=== PATIENT | female | born 1965 ===

== ENCOUNTER 2016-10-14 16:27 | Inpatient (IN) | payer MEDICAID ==
[2016-10-14 17:20] LABS: BASO # 0.1 K/uL (0.0-0.2); BASO % 0.8 % (0.0-2.0); EOS # 0.1 K/uL (0.0-0.7); EOS % 1.5 % (0.0-4.0); HEMOGLOBIN 14.1 g/dL (11.0-16.0); LYMPH # 2.7 K/uL (1.0-4.3); LYMPH % 27.2 % (20.0-40.0); MEAN CELL VOLUME 85.1 fL (81.0-99.0); MEAN CORPUSCULAR HEMOGLOBIN 28.9 pg (27.0-31.0); MEAN PLATELET VOLUME 8.1 fL (7.2-11.7); MONO # 0.7 K/uL (0.0-0.8); MONO % 6.6 % (0.0-10.0); NEUT # 6.4 K/uL (1.8-7.0); NEUT % 63.9 % (50.0-75.0); RBC 4.89 Mil/uL (3.80-5.20); RED CELL DISTRIBUTION WIDTH 12.5 % (11.5-14.5)
[2016-10-14 17:28] LABS: ALBUMIN 4.1 g/dL (3.5-5.0)
[2016-10-14 17:31] LABS: ALB/GLOB RATIO 1.2 (1.0-2.1); AST/SGOT 23 U/L (14-36); GFR AFRICAN-AMERICAN 57; GFR NON-AFRICAN AMERICAN 47
[2016-10-14 17:32] LABS: ALT/SGPT 30 U/L (9-52); BLOOD UREA NITROGEN 30 mg/dL (7-17); CALCIUM 9.6 mg/dl (8.6-10.4)
[2016-10-14 17:39] LABS: BARBITURATES, UR NEGATIVE (NEGATIVE); SQUAMOUS EPITHIAL 2 /hpf (0-5); URINE BACTERIA OCC (<OCC); URINE BILIRUBIN NEGATIVE (NEGATIVE); URINE BLOOD NEGATIVE (NEGATIVE); URINE CLARITY Clear (Clear); URINE COLOR Yellow (YELLOW); URINE GLUCOSE (UA) NORMAL (Normal); URINE NITRATE NEGATIVE (NEGATIVE); URINE PROTEIN 1+ mg/dL (NEGATIVE); URINE UROBILINOGEN NORMAL mg/dL (0.2-1.0)
[2016-10-14 17:40] LABS: BENZODIAZEPINES, UR NEGATIVE (NEGATIVE); HCG,QUALITATIVE URINE NEGATIVE (NEGATIVE); URINE LEUKOCYTE ESTERASE 1+ Leu/uL (Negative)
[2016-10-14 17:43] LABS: OPIATES, UR NEGATIVE (NEGATIVE); PHENCYCLIDINE, UR NEGATIVE (NEGATIVE)
--- NOTE | 2016-10-14 17:52 | C.PDOC ---
History Of Present Illness 51 y/o female presents to the ED for evaluation of depression and suicidal ideationS. Patient is unwilling to give any details of suicidal plan currently. She denies physical complaints at this time. Time Seen by Provider: 10/14/16 16:44 Chief Complaint (Nursing): Psychiatric Evaluation History Per: Patient History/Exam Limitations: no limitations Current Symptoms Are (Timing): Still Present Suicide/Self Injury Attempted (Context): None Severity: Mild Associated Symptoms: Depression, Suicidal Thoughts Involuntary Hold By: None Additional History Per: Patient Past Medical History Reviewed: Historical Data, Nursing Documentation, Vital Signs Vital Signs: Last Vital Signs Temp 98.1 F 10/19/16 08:05 Pulse 70 10/19/16 08:05 Resp 19 10/19/16 08:05 BP 126/84 10/19/16 08:05 Pulse Ox 97 10/14/16 19:32 - Medical History PMH: Anemia, Depression, HTN, Schizophrenia - [facility] Procedures INDIVIDUAL PSYCHOTHERAPY, SUPPORTIVE (10/14/16) TRANSFUSE NONAUT RED BLOOD CELLS IN PERIPH VEIN, PERC (07/06/15) Family History: States: No Known Family Hx - Social History Hx Alcohol Use: No Hx Substance Use: No - Immunization History Hx Tetanus Toxoid Vaccination: No Hx Influenza Vaccination: No Hx Pneumococcal Vaccination: No Review Of Systems Except As Marked, All Systems Reviewed And Found Negative. Constitutional: Negative for: Fever, Chills Cardiovascular: Negative for: Chest Pain, Palpitations Respiratory: Negative for: Cough, Shortness of Breath Neurological: Negative for: Headache, Dizziness Psych: Positive for: Depression, Suicidal ideation Physical Exam - Physical Exam Appears: Well, Non-toxic, No Acute Distress Skin: Normal Color, Warm, Dry Head: Normacephalic Eye(s): bilateral: Normal Inspection Oral Mucosa: Moist Neck: Supple Cardiovascular: Rhythm Regular Respiratory: Normal Breath Sounds, No Rales, No Rhonchi, No Wheezing Extremity: Normal ROM Neurological/Psych: Oriented x3 ED Course And Treatment - Laboratory Results Result Diagrams: 10/14/16 17:16 10/14/16 17:16 O2 Sat by Pulse Oximetry: 98 (on RA) Pulse Ox Interpretation: Normal Progress Note: Blood work, UA, Upreg, UDS ordered and reviewed. 6:05 pm- Patient medically cleared. 6:55pm- Patient accepted for psychiatric admission ( depression) by Dr. Gilliam. Disposition - Disposition Disposition: HOSPITALIZED Disposition Time: 16:57 Condition: STABLE - Clinical Impression Clinical Impression: Depression - Scribe Statement The provider has reviewed the documentation as recorded by the Scribe Suhas Del Real All medical record entries made by the Scribe were at my direction and personally dictated by me. I have reviewed the chart and agree that the record accurately reflects my personal performance of the history, physical exam, medical decision making, and the department course for this patient. I have also personally directed, reviewed, and agree with the discharge instructions and disposition. Decision To Admit - Pt Status Changed To: Hospital Disposition Of: Inpatient - Admit Certification Admit to Inpatient:: After my assessment, the patient will require hospitalization for at least two midnights. This is because of the severity of symptoms shown, intensity of services needed, and/or the medical risk in this patient being treated as an outpatient. - InPatient: Physician Admission Certification: I certify that this patient requires 2 or more midnights of care for the following reason:: see notes - . Bed Request Type: Psychiatry Admitting Physician: Con Gilliam Patient Diagnosis: Depression
--- NOTE | 2016-10-15 09:33 | PCM.PSYCH ---
Initial Psychiatric Evaluation - Initial Psychiatric Evaluation Type of Admission: Voluntary Legal Status: Capacity Chief Complaint (in patient's own words): I was feeling depressed and suicidal History of Present Illness and Precipitating Events: Patient is a 51 years-old female, who lives alone, presented to the ER with her sister because of feeling depressed and having suicidal ideations. Patient reports that she lives alone, and likes to stay in her room by herself. She states that on 10/14/16, her sister tried to take her to her house, during which she felt anxious, depressed, and had thoughts about "wanting to kill myself." She states that she wanted to jump out of a window but would not do it because of the pain. Patient reports of hearing bells, and seeing hallucinations of shadows of a person for years. She states that these hallucinations exacerbated when she was diagnosed with ovarian cancer in September 2015. She reports having history of depression since years ago, but did not seek help until 2012 when her . She was hospitalized for depression and suicidal ideations in 2012. She denies any previous suicide attempts. She denies any homicidal ideations. Patient states that she missed taking her risperiodone for past 2 weeks. She states that she takes Xanax only when feeling anxious, such as when taking buses or going outside in public. Patient states that she started smoking cigarettes last month because "she does not care anymore after being diagnosed with cancer," and smokes 2-3 cigarettes every few days. Patient denies any substance abuse. Past medical history Ovarian cancer, HTN Current Medications: Active Medications Generic Name Dose Route Start Last Admin Trade Name Freq PRN Reason Stop Dose Admin Ascorbic Acid 500 mg 10/15/16 10:00 Vitamin C 500 Mg Tab PO DAILY ANNIKA Benztropine Mesylate 1 mg 10/14/16 19:38 Cogentin PO Q6 PRN eps Haloperidol 5 mg 10/14/16 19:38 Haldol PO Q6 PRN Agitation Hydroxyzine HCl 25 mg 10/14/16 22:00 10/14/16 21:37 Atarax PO 25 mg HS ANNIKA Administration Ibuprofen 600 mg 10/14/16 19:38 Motrin Tab PO Q6 PRN Pain, moderate (4-7) Lorazepam 1 mg 10/14/16 19:38 Ativan PO Q6 PRN Anxiety Metoprolol Succinate 50 mg 10/15/16 10:00 Toprol Xl PO DAILY ANNIKA Pantoprazole Sodium 40 mg 10/15/16 10:00 Protonix Ec Tab PO DAILY ANNIKA Risperidone 0.25 mg 10/15/16 22:00 Risperdal Tab PO HS ANNIKA Trazodone HCl 50 mg 10/14/16 19:38 Desyrel PO HS PRN Insomnia Past Psychiatric History - Past Psychiatric History Previous Treatment History: None Pertinent Medical Hx (Current Medical&Sleep Prob, Allergies): Allergies Allergy/AdvReac Type Severity Reaction Status Date / Time No Known Allergies Allergy Verified 10/14/16 16:41 Ascorbic Acid [Vitamin C] 500 mg PO DAILY 10/14/16 Hydroxyzine Pamoate 25 mg PO DAILY 10/14/16 Metoprolol Succinate [Toprol XL] 50 mg PO DAILY 10/14/16 Omeprazole 40 mg PO DAILY 10/14/16 risperiDONE [RisperDAL] 0.25 mg PO DAILY 10/14/16 Review of Systems - Review of Systems All systems: reviewed and no additional remarkable complaints except - Psychiatric Psychiatric: Anxiety, Auditory Hallucinations, Depression, Irritability, Paranoia, Suicidal Ideation, Visual Hallucinations Mental Status Examination - Personal Presentation Personal Presentation: Looks stated age - Affect Affect: Broad - Motor Activity Motor Activity: Psychomotor Agitation - Reliability in Providing Information Reliability in Providing Information: Poor, due to alteration in thoughts, Poor , due to altered mood - Speech Speech: Disorganized, Other - Mood Mood: Anxious - Formal Thought Process Formal Thought Process: Hallucinations, Delusions, Paranoia, Loosening of associations, Flight of ideas, Circumstantial - Hallucinations/Delusions Hallucinations: Visual, Auditory Delusions: Persecution - Obsessions/Compulsions Obsessions: No Compulsions: No - Cognitive Functions Orientation: Person, Place, Situation, Time Sensorium: Alert Attention/Concentration: Attentive Abstract Thinking: [place] Estimate of Intelligence: Below average Judgement: Imparied, as evidence by: Poor judgement, Imparied, as evidence by: Lack of insight into illness - Risk Risk: Diminished functioning - Strength & Assets Inventory Strength & Assets Inventory: Family support, Cooperative - Limitations Limitations: Living alone DSM 5 DX - DSM 5 DSM 5 Diagnosis: Bipolar disorder mixed severe with psychotic features R/O Schizoaffective disorder bipolar type - Recommended/Plan of Treatment Treatment Recommendations and Plan of Treatment: Bipolar disorder mixed severe with psychotic features R/O Schizoaffective disorder bipolar type CBT Psychoeducation Supportive therapy, group therapy, individual therapy Risperdal 0.5 mg by mouth QHS Sertraline 50 mg PO Daily Trazodone 50 mg by mouth daily at bedtime HTN Monitor s/s h/o Ovarian cancer Monitor s/s - Smoking Cessation Smoking Cessation Initiated: No
[2016-10-15] MEDS: Pantoprazole 40 mg EC Tab PO SCH (10:56)
[2016-10-15] MEDS: Metoprolol Succinate 50 mg XL Tab PO SCH (10:56)
[2016-10-16] MEDS: Pantoprazole 40 mg EC Tab PO SCH (09:43)
[2016-10-16] MEDS: Metoprolol Succinate 50 mg XL Tab PO SCH (09:44)
--- NOTE | 2016-10-16 10:30 | PCM.PYCHPN ---
Psychiatric Progress Note - Psychiatric Progress Note Patient seen today, length of contact: 17 min Patient Chief Complaint: I am feeling little better Problems Identified/Issues Discussed: Patient seen and evaluated, chart reviewed and discussed with the nurse. Patient appeared more organized and less internally preoccupied, than yesterday. Patient remained isolated, confined and withdrawn. She still reports depressed mood and feelings of hopelessness and helplessness. She is taking medication and denies any side effects. Supportive therapy and psychoeducation were given. Medication Change: No Medical Record Reviewed: Yes Mental Status Examination - Cognitive Function Orientation: Person, Place, Situation, Time Memory: Intact Attention: Poor Concentration: WNL Association: Loose Fund of Knowledge: WNL - Mood Mood: Anxious - Affect Affect: Broad - Speech Speech: Appropriate - Formal Thought Process Formal Thought Process: Hallucinations, Delusions, Paranoia, Loosening of associations - Suicidal Ideation Suicidal Ideation: No - Homicidal Ideation Homicidal Ideation: No Goal/Treatment Plan - Goal/Treatment Plan Need for Continued Stay: Remain at risks for inpatient hospitalization, Discharge may exacerbated symptoms Progress Toward Problem(s) and Goals/Treatment Plan: Bipolar disorder mixed severe with psychotic features R/O Schizoaffective disorder bipolar type CBT Psychoeducation Supportive therapy, group therapy, individual therapy Risperdal 0.5 mg by mouth QHS Sertraline 50 mg PO Daily Trazodone 50 mg by mouth daily at bedtime HTN Monitor s/s h/o Ovarian cancer Monitor s/s Estimated Date of D/C: 10/20/16
[2016-10-16] MEDS ORDERED: Aluminum Hydroxide/Magnesium Hydroxide Susp (30 mL) PO PRN (20:10)
[2016-10-17 07:32] VITALS: RESP 19
[2016-10-17] MEDS: Pantoprazole 40 mg EC Tab PO SCH (09:29)
[2016-10-17] MEDS: Metoprolol Succinate 50 mg XL Tab PO SCH (09:31)
--- NOTE | 2016-10-17 14:20 | PCM.PYCHPN ---
Psychiatric Progress Note - Psychiatric Progress Note Patient seen today, length of contact: 16 mins Patient Chief Complaint: 'I am feeling depressed' Problems Identified/Issues Discussed: Patient is seen, evaluated, and case discussed with staff. Patient states that she is feeling depressed and irritable. She remained isolated and withdrawn. She reports improvement in her racing thoughts and reports improvement in her auditory and visual hallucinations. She states that her bones were hurting and she is agitated because she did not get much sleep. Her BP was high at 155/107 and was given clonidine. Patient is complaint with all medications, and reports no side effects. Support and psychoeducation given. Medication Change: Yes (increase risperdal, increase trazodone) Medical Record Reviewed: Yes Mental Status Examination - Cognitive Function Orientation: Person, Place, Situation, Time Memory: Intact Attention: WNL Concentration: Poor Association: Loose Fund of Knowledge: Poor - Mood Mood: Anxious - Affect Affect: Broad - Speech Speech: Appropriate - Formal Thought Process Formal Thought Process: Paranoia - Suicidal Ideation Suicidal Ideation: No - Homicidal Ideation Homicidal Ideation: No Goal/Treatment Plan - Goal/Treatment Plan Need for Continued Stay: Remain at risks for inpatient hospitalization, Discharge may exacerbated symptoms Progress Toward Problem(s) and Goals/Treatment Plan: Bipolar disorder mixed severe with psychotic features R/O Schizoaffective disorder bipolar type CBT Psychoeducation Supportive therapy, group therapy, individual therapy Risperdal 1 mg by mouth QHS Sertraline 50 mg PO Daily Trazodone 100 mg by mouth daily at bedtime HTN Monitor s/s h/o Ovarian cancer Monitor s/s Estimated Date of D/C: 10/20/16 - Smoking Cessation Smoking Cessation Initiated: No
[2016-10-18] MEDS: Pantoprazole 40 mg EC Tab PO SCH ×2 (07:49→09:57)
--- NOTE | 2016-10-18 09:46 | PCM.PYCHPN ---
Psychiatric Progress Note - Psychiatric Progress Note Patient seen today, length of contact: 16 mins Patient Chief Complaint: 'I am feeling much better Problems Identified/Issues Discussed: Patient is seen, evaluated, and case discussed with staff. Patient states that she is feeling much better. She reports improvement in her mood and but still reports irritability and agitation. She denies any hallucinations, and suicidal ideations. She states that her bones are still hurting but she does not want any medications as the pain is not bothering her. Her BP has been back to normal today. Patient is complaint with all medications , and reports no side effects. Support and psychoeducation given. Medication Change: Yes (start Depakote, increase Risperdal) Medical Record Reviewed: Yes Mental Status Examination - Cognitive Function Orientation: Person, Place, Situation, Time Memory: Intact Attention: WNL Concentration: Poor Association: WNL Fund of Knowledge: Poor - Mood Mood: Anxious - Affect Affect: Broad - Speech Speech: Appropriate - Formal Thought Process Formal Thought Process: Flight of ideas - Suicidal Ideation Suicidal Ideation: No - Homicidal Ideation Homicidal Ideation: No Goal/Treatment Plan - Goal/Treatment Plan Need for Continued Stay: Remain at risks for inpatient hospitalization, Discharge may exacerbated symptoms Progress Toward Problem(s) and Goals/Treatment Plan: Bipolar disorder mixed severe with psychotic features R/O Schizoaffective disorder bipolar type CBT Psychoeducation Supportive therapy, group therapy, individual therapy Risperdal 1 mg by mouth QHS Sertraline 50 mg PO Daily Trazodone 50 mg by mouth daily at bedtime start Depakote 250 mg pO BID HTN Monitor s/s h/o Ovarian cancer Monitor s/s Estimated Date of D/C: 10/19/16
[2016-10-18] MEDS: Metoprolol Succinate 50 mg XL Tab PO SCH (09:57)
[2016-10-18] MEDS: Divalproex 250 mg DR Tab PO SCH ×2 (10:59→18:00)
[2016-10-19 08:05] VITALS: BP 126/84; PULSE 70; TEMP 98.1
[2016-10-19] MEDS: Divalproex 250 mg DR Tab PO SCH (09:31)
[2016-10-19] MEDS: Metoprolol Succinate 50 mg XL Tab PO SCH (09:31)
[2016-10-19] MEDS: Pantoprazole 40 mg EC Tab PO SCH (09:31)
--- NOTE | 2016-10-19 10:45 | PCM.PYCHDC ---
Mental Status Examination - Mental Status Examination Orientation: Person, Place, Situation, Time Memory: Intact Mood: Neutral Affect: Constricted Speech: Soft Attention: WNL Concentration: WNL Association: WNL Fund of Knowledge: WNL Formal Thought Process: No Impairment Description of patient's judgement and insight: good, fair Psychotic Thoughts and Behaviors: denies any AVH Suicidal Ideation: No Current Homicidal Ideation?: No Discharge Summary - Discharge Note Reason for Hospitalization: Patient is a 51 years-old female, who lives alone, presented to the ER with her sister because of feeling depressed and having suicidal ideations. Patient reports that she lives alone, and likes to stay in her room by herself. She states that on 10/14/16, her sister tried to take her to her house, during which she felt anxious, depressed, and had thoughts about "wanting to kill myself." She states that she wanted to jump out of a window but would not do it because of the pain. Patient reports of hearing bells, and seeing hallucinations of shadows of a person for years. She states that these hallucinations exacerbated when she was diagnosed with ovarian cancer in September 2015. She reports having history of depression since years ago, but did not seek help until 2012 when her . She was hospitalized for depression and suicidal ideations in 2012. She denies any previous suicide attempts. She denies any homicidal ideations. Patient states that she missed taking her risperiodone for past 2 weeks. She states that she takes Xanax only when feeling anxious, such as when taking buses or going outside in public. Patient states that she started smoking cigarettes last month because "she does not care anymore after being diagnosed with cancer," and smokes 2-3 cigarettes every few days. Patient denies any substance abuse. Past medical history Ovarian cancer, HTN Consultations:: List each consultation separately and include: 1. Reason for request. 2. Findings. 3. Follow-up Summary of Hospital Course include:: 1. Description of specific treatment plan utilized for patients during their course of treatmen. 2. Summarize the time- course for resolution of acute symptoms and/or regressed behaviors. 3. Describe issues identified and worked on during hospitalization. 4. Describe medication utilized. 5. Describe medical problems identified and treated. 6. Reassessment of suicide risk Summary of Hospital Course: During the course of her stay, patient (pt) started progressively improving and she no longer remained irritable, anxious and paranoid. Her mood and paranoia were improved and she started attending groups and meetings and started socializing. Patient denied any feelings of hopelessness, helplessness, and worthlessness, denied any problem with the sleep or appetite, denied suicidal ideation or homicidal ideation. Pt denied any auditory or visual hallucinations. Some changes were made in her current medications and patient was discharged on following medications. She tolerated these medications very well and denied any side effects. - Final Diagnosis (DSM 5) Condition upon Discharge: GOOD DSM 5: Bipolar disorder mixed severe with psychotic features Disposition: HOME/ ROUTINE Follow-up Treatment Plan: Education: Pt was educated and counseled about the risks and benefits of taking and not taking medications. Pt was educated and counseled about the risks of drinking and abusing drugs. Pt was educated and counseled to go to the ER or call 911 if pt develop suicidal ideation or homicidal ideation, worsening of symptoms or severe side effects of the meds. Prescriptions/Medication Reconciliation: Ascorbic Acid [Vitamin C 500 mg Tab] 500 mg PO DAILY #30 tab Benztropine [Cogentin] 1 mg PO HS #30 tab Divalproex [Depakote DR] 250 mg PO BID #60 tcp Metoprolol Succinate [Toprol XL] 50 mg PO DAILY #30 tab Pantoprazole [Protonix EC Tab] 40 mg PO DAILY #30 ect risperiDONE [RisperDAL Tab] 1 mg PO HS #30 tab Sertraline [Zoloft] 50 mg PO DAILY #30 tab traZODone [Desyrel] 50 mg PO HS PRN #30 tab PRN Reason: Insomnia - Smoking Cessation Smoking Cessation Medication prescribed: No - Antipsychotic Medications Pt discharged on 2 or more routine antipsychotic medications: No
[2016-10-23 17:31] VITALS: O2SAT 98
== END 2016-10-19 10:55 | disposition home or self-care (01) | DRG 430 ==
LOC: C.ER 16:27 → C.5E 18:57
PROC: GZ56ZZZ Individual Psychotherapy, Supportive (ICD-10-PCS; principal; 2016-10-14)
DX: F31.64 Bipolar disorder, current episode mixed, severe, with psychotic features (principal); I10 Essential (primary) hypertension; Z85.43 Personal history of malignant neoplasm of ovary; F17.210 Nicotine dependence, cigarettes, uncomplicated